=== PATIENT | male | born 1995 | race Native Hawaiian/Other Pacific Islander ===

== ENCOUNTER 2017-10-03 00:34 | Emergency (ER) | payer SELFPAY ==
[2017-10-03 00:52] VITALS: BP 130/84; PULSE 90; RESP 17; TEMP 97.3; O2SAT 97
[2017-10-03] MEDS ORDERED: Sodium Chloride 0.9% 1,000 ML IV STA (00:59)
[2017-10-03] MEDS ORDERED: DiphenhydrAMINE 50 mg/ml Inj IV STA (00:59)
[2017-10-03] MEDS ORDERED: DiphenhydrAMINE 50 mg/ml Inj ONE (01:27)
--- NOTE | 2017-10-03 01:55 | ED PDOC ---
HPI: Allergic Reaction Time Seen by Provider: 10/03/17 00:40 Chief Complaint (Nursing): Allergic Reaction Chief Complaint (Provider): Allergic Reaction History Per: Patient History/Exam Limitations: no limitations Additional Complaint(s): 21 y/o [place] male with past medical history of shrimp allergy presents to the ED for evaluation of possible allergic reaction. Patient is a [employer] student reports drinking at a [employer] tonight. States that he was exposed to shrimp earlier and felt itchiness, rash and eye swelling. Reports that he is nauseous and attributes to drinking alcohol. Patient took Benadryl with little improvement. Denies shortness of breath, trouble swallowing or any further medical complaints. Past Medical History Reviewed: Historical Data, Nursing Documentation, Vital Signs Vital Signs: Last Vital Signs Temp 97.3 F L 10/03/17 00:45 Pulse 90 10/03/17 00:45 Resp 17 10/03/17 00:45 BP 130/84 10/03/17 00:45 Pulse Ox 97 10/03/17 00:45 - Medical History PMH: No Chronic Diseases - Surgical History Surgical History: No Surg Hx - Family History Family History: States: Unknown Family Hx - Home Medications Home Medications: Ambulatory Orders Medication Instructions Recorded Famotidine [Pepcid] 20 mg PO Q12 #14 tab 10/03/17 predniSONE [predniSONE Tab] 60 mg PO QAM #12 tab 10/03/17 - Allergies Allergies/Adverse Reactions: Allergies Allergy/AdvReac Type Severity Reaction Status Date / Time shrimp Allergy Mild RASH Verified 10/03/17 00:52 Review of Systems ROS Statement: Except As Marked, All Systems Reviewed And Found Negative (As per HPI, otherwise negative) Respiratory: Negative for: Shortness of Breath Gastrointestinal: Positive for: Nausea Skin: Positive for: Rash (and itchiness) Physical Exam - Reviewed Nursing Documentation Reviewed: Yes Vital Signs Reviewed: Yes - Physical Exam Appears: Positive for: No Acute Distress Head Exam: Positive for: ATRAUMATIC, NORMAL INSPECTION, NORMOCEPHALIC Skin: Positive for: Rash (Puritic rash to upper back) Eye Exam: Positive for: EOMI, PERRL, Periorbital swelling (and edema) ENT: Positive for: Normal ENT Inspection Neck: Positive for: Normal, Painless ROM, Supple Cardiovascular/Chest: Positive for: Regular Rate, Rhythm. Negative for: Murmur Respiratory: Positive for: Normal Breath Sounds. Negative for: Accessory Muscle Use, Respiratory Distress Gastrointestinal/Abdominal: Positive for: Normal Exam, Bowel Sounds, Soft. Negative for: Tenderness Back: Positive for: Normal Inspection Extremity: Positive for: Normal ROM. Negative for: Deformity Neurologic/Psych: Positive for: Alert, Oriented (x3) - Laboratory Results Result Diagrams: 10/03/17 01:54 10/03/17 01:54 - ECG O2 Sat by Pulse Oximetry: 97 (RA) Pulse Ox Interpretation: Normal Disposition - Clinical Impression Clinical Impression: Acute allergic reaction, Alcohol intoxication - Disposition Disposition: Routine/Home Disposition Time: 03:00 Condition: IMPROVED Prescriptions: Famotidine [Pepcid] 20 mg PO Q12 #14 tab predniSONE [predniSONE Tab] 60 mg PO QAM #12 tab Instructions: Food Allergy Forms: Spinal Integration (Bulgarian) Medical Decision Making Medical Decision Making: Time: 01:20 Initial Impression: 36 y/o female with allergic reaction secondary to shrimp exposure Plan: CMP CBC w/ differential Benadryl 50mg IV Pepcid 40mg IV Methylprednisolone 125mg PO Sodium chloride 1L IV Ondansetron 4mg IV Ondansetron ODT 4mg IV Helplock Insertion Reevaluation At3AM pt feels improved and is stable for discharge home DX Allergic Reaction, Alcohol intoxication Scribe Attestation: Documented by Vel Carranza acting as a scribe for Osmani Rayo MD. Scribe Attestation: All medical record entries made by the Scribe were at my direction and personally dictated by me. I have reviewed the chart and agree that the record accurately reflects my personal performance of the history, physical exam, medical decision making, and the department course for this patient. I have also personally directed, reviewed, and agree with the discharge instructions and disposition.
[2017-10-03 02:04] LABS: BASO % 0.3 % (0.0-2.0); EOS # 0.1 K/uL (0.0-0.7); EOS % 0.9 % (0.0-4.0); HEMOGLOBIN 13.1 g/dL (12.0-18.0); LYMPH # 2.2 K/uL (1.0-4.3); LYMPH % 20.6 % (20.0-40.0); MEAN CORPUSCULAR HEMOGLOBIN 24.4 pg (27.0-31.0); MEAN PLATELET VOLUME 7.1 fl (7.2-11.7); MONO # 0.5 K/uL (0.0-0.8); MONO % 4.6 % (0.0-10.0); NEUT % 73.6 % (50.0-75.0); NRBC % 0.4 % (0.0-0.0); RBC 5.38 Mil/uL (4.40-5.90); RED CELL DISTRIBUTION WIDTH 15.5 % (11.5-14.5); WHITE BLOOD COUNT 10.8 K/uL (4.8-10.8)
[2017-10-03 02:14] LABS: ALB/GLOB RATIO 1.3 (1.0-2.1); ALBUMIN 4.5 g/dL (3.5-5.0); ALT/SGPT 42 U/L (21-72); AST/SGOT 32 U/L (17-59); BLOOD UREA NITROGEN 14 mg/dl (9-20); CALCIUM 8.9 mg/dL (8.4-10.2); GFR AFRICAN-AMERICAN > 60; GFR NON-AFRICAN AMERICAN > 60
== END 2017-10-03 04:47 | disposition home or self-care (01) ==
LOC: H.ER 00:34
DX: F10.129 Alcohol abuse with intoxication, unspecified (principal); T78.40XA Allergy, unspecified, initial encounter
CPT/HCPCS: 80053; 85025; 96361; 96374; 96375; 99283; J1200; J2930; J7040